=== PATIENT | male | born 1945 | race Caucasian/White ===

== ENCOUNTER 2021-01-18 13:20 | Emergency (ER) | payer MEDICARE, OTHER ==
[~2021-01-18] VITALS: Ht 180 cm; Wt 165.0 kg
--- NOTE | 2021-01-18 13:45 | ED General ---
General Chief Complaint: Exposure Stated Complaint: HEAT EXPOSURE Nursing Triage Note: PT WAS CHANGING A FLAT TIRE ON THE SIDE OF THE ROAD AND BECAME LIGHTHEADED AND DIZZY IN THE HEAT. Source of Information: Patient, EMS History of Present Illness Date Seen by Provider: Jan 18, 2021 Time Seen by Provider: 13:20 Initial Comments 75 yo male presenting by EMS with complaint of being light headed, dizzy and almost passing out in the heat as he was trying to change a flat tire on the side of the road. He did not have air conditioning in his truck either. He does have a history of high blood pressure and building fluid in his lungs. He is traveling from [place] as he was trying to transport a trailer. He had 2 flat tires that he had to try and change. With him being in the heat he was getting overheated and felt like he was going to pass out so he called 911. They had started an IV and were given IV fluids on arrival to the emergency department. He states he was feeling better as many fluids were going on. He denies any vomiting but did have some nausea while he was in the extreme heat. He was given Zofran by EMS. He denies any chest pain, vomiting, diarrhea, abdominal pain, chest pain, headache Allergies and Home Medications Allergies Coded Allergies: No Known Drug Allergies (Unverified , 01/18/21) Patient Home Medication List Home Medication List Reviewed: Yes Review of Systems Review of Systems Constitutional: see HPI; No chills; dizziness; No fever EENTM: no symptoms reported Respiratory: no symptoms reported Cardiovascular: no symptoms reported Gastrointestinal: see HPI Genitourinary: no symptoms reported Musculoskeletal: no symptoms reported Skin: no symptoms reported Psychiatric/Neurological: No Symptoms Reported Past [id number] Hx Patient Social History Tobacco Use?: No Use of E-Cig and/or Vaping dev: No Substance use?: No Alcohol Use?: No Pt feels they are or have been: No Immunizations Up To Date First/Initial COVID19 Vaccinat: JUL 2020 Second COVID19 Vaccination Brian: AUGUST 2020 COVID19 Vaccine [employer]: DOESNT KNOW Past Medical History Chronic Edema/Swelling, Hypertension Physical Exam Vital Signs Vital Signs - First Documented 01/18/21 13:30 Temp 36.4 Pulse 71 Resp 18 B/P (MAP) 122/74 (90) Pulse Ox 94 O2 Delivery Room Air Capillary Refill : Less Than 3 Seconds Height, Weight, BMI Height: '" Weight: lbs. oz. kg; 50.00 BMI Method: General Appearance: No Apparent Distress, WD/WN HEENT: PERRL/EOMI, Pharynx Normal Neck: Full Range of Motion, Normal Inspection, Non Tender, Supple Respiratory: Chest Non Tender, Lungs Clear, Normal Breath Sounds, No Accessory Muscle Use, No Respiratory Distress Cardiovascular: Regular Rate, Rhythm, Normal Peripheral Pulses Gastrointestinal: Normal Bowel Sounds, No Pulsatile Mass, Non Tender, Soft Rectal: Deferred Back: No CVA Tenderness Extremity: Normal Capillary Refill, Normal Inspection, Pedal Edema (Trace to 1+ bilateral) Neurologic/Psychiatric: Alert, Oriented x3 Skin: Normal Color, Warm/Dry Progress/Results/Core Measures Suspected Sepsis SIRS Temperature: Pulse: 71 Respiratory Rate: 18 Laboratory Tests 01/18/21 13:30: White Blood Count 7.4 Blood Pressure 122 /74 Mean: 90 Laboratory Tests 01/18/21 13:30: Creatinine 0.86, Platelet Count 195, Total Bilirubin 0.7 Results/Orders Lab Results Laboratory Tests Test 01/18/21 13:30 Range/Units White Blood Count 7.4 4.3-11.0 10^3/uL Red Blood Count 4.52 4.35-5.85 10^6/uL Hemoglobin 13.3 13.3-17.7 G/DL Hematocrit 40 40-54 % Mean Corpuscular Volume 88 80-99 FL Mean Corpuscular Hemoglobin 29 25-34 PG Mean Corpuscular Hemoglobin Concent 33 32-36 G/DL Red Cell Distribution Width 14.2 10.0-14.5 % Platelet Count 195 130-400 10^3/uL Mean Platelet Volume 10.4 7.4-10.4 FL Immature Granulocyte % (Auto) 0 % Neutrophils (%) (Auto) 75 42-75 % Lymphocytes (%) (Auto) 14 12-44 % Monocytes (%) (Auto) 9 0-12 % Eosinophils (%) (Auto) 2 0-10 % Basophils (%) (Auto) 0 0-10 % Neutrophils # (Auto) 5.6 1.8-7.8 X 10^3 Lymphocytes # (Auto) 1.0 1.0-4.0 X 10^3 Monocytes # (Auto) 0.7 0.0-1.0 X 10^3 Eosinophils # (Auto) 0.2 0.0-0.3 10^3/uL Basophils # (Auto) 0.0 0.0-0.1 10^3/uL Immature Granulocyte # (Auto) 0.0 0.0-0.1 10^3/uL Sodium Level 140 135-145 MMOL/L Potassium Level 3.9 3.6-5.0 MMOL/L Chloride Level 108 H 98-107 MMOL/L Carbon Dioxide Level 23 21-32 MMOL/L Anion Gap 9 5-14 MMOL/L Blood Urea Nitrogen 19 H 7-18 MG/DL Creatinine 0.86 0.60-1.30 MG/DL Estimat Glomerular Filtration Rate 86 BUN/Creatinine Ratio 22 Glucose Level 91 70-105 MG/DL Calcium Level 8.6 8.5-10.1 MG/DL Corrected Calcium 8.8 8.5-10.1 MG/DL Magnesium Level 1.7 1.6-2.4 MG/DL Total Bilirubin 0.7 0.1-1.0 MG/DL Aspartate Amino Transf (AST/SGOT) 24 5-34 U/L Alanine Aminotransferase (ALT/SGPT) 20 0-55 U/L Alkaline Phosphatase 91 40-136 U/L Total Protein 5.8 L 6.4-8.2 GM/DL Albumin 3.7 3.2-4.5 GM/DL My Orders Orders - JUSTINE FELTON MD Comprehensive Metabolic Panel (01/18/21 13:28) Ed Iv/Invasive Line Start (01/18/21 13:28) Cbc With Automated Diff (01/18/21 13:28) Magnesium (01/18/21 13:28) Vital Signs/I&O 01/18/21 01/18/21 13:30 15:36 Temp 36.4 36.4 Pulse 71 71 Resp 18 16 B/P (MAP) 122/74 (90) 123/68 Pulse Ox 94 98 O2 Delivery Room Air Room Air 01/19/21 00:00 Intake Total 700 ml Balance 700 ml Capillary Refill : Less Than 3 Seconds Blood Pressure Mean: 90 Progress Note #1: Progress Note Check basic labs and trying to obtain urine sample from the patient. He has 2 L of normal saline infusing through IVs from EMS. Plan on stopping after the 2 L since he has a history of edema and swelling in his legs and has to take medicine to help get the fluid off. Progress Note #2: Progress Note No acute significant normality on CBC or chemistry. His vital signs remained stable and he continued to feel improved while here in the ED. He was tolerating oral fluids without difficulty. He states he had prostate issues and did not feel like he can provide a urine specimen at this point. We'll discharged home and have him encourage fluids. Counseled on follow-up and return precautions. Departure Impression Primary Impression: Heat exhaustion, unspecified, initial encounter Disposition: HOME, SELF-CARE Condition: Improved Departure-Patient Inst. Decision time for Depature: 15:44 Referrals: [facility] Patient Instructions: Heat Illness ED Add. Discharge Instructions: Stay well hydrated and follow up with clinic for continued concerns Stay out of the excessive heat and try to only do things outside during the cooler times of the day early in the morning or late evening. All discharge instructions reviewed with patient and/or family. Voiced understanding. JUSTINE FELTON MD Jan 18, 2021 13:45
[2021-01-18 14:16] LABS: WHITE BLOOD COUNT 7.4 10^3/uL (4.3-11.0)
[2021-01-18 14:17] LABS: HEMATOCRIT 40 % (40-54); HEMOGLOBIN 13.3 G/DL (13.3-17.7); LYMPHOCYTES % (AUTO) 14 % (12-44); MEAN CORPUSCULAR HEMOGLOBIN 29 PG (25-34); MEAN CORPUSCULAR HGB CONC 33 G/DL (32-36); MEAN CORPUSCULAR VOLUME 88 FL (80-99); MEAN PLATELET VOLUME 10.4 FL (7.4-10.4); MONOCYTES % (AUTO) 9 % (0-12); NEUTROPHILS % (AUTO) 75 % (42-75); PLATELET COUNT 195 10^3/uL (130-400)
[2021-01-18 14:18] LABS: BASOPHILS % (AUTO) 0 % (0-10); EOSINOPHILS # (AUTO) 0.2 10^3/uL (0.0-0.3); EOSINOPHILS % (AUTO) 2 % (0-10); MONOCYTES # (AUTO) 0.7 X 10^3 (0.0-1.0); NEUTROPHILS # (AUTO) 5.6 X 10^3 (1.8-7.8)
[2021-01-18 14:42] LABS: CALCIUM 8.6 MG/DL (8.5-10.1); CREATININE SERUM 0.86 MG/DL (0.60-1.30); POTASSIUM 3.9 MMOL/L (3.6-5.0)
[2021-01-18 14:43] LABS: ALBUMIN 3.7 GM/DL (3.2-4.5); BILIRUBIN,TOTAL 0.7 MG/DL (0.1-1.0); MAGNESIUM 1.7 MG/DL (1.6-2.4); TOTAL PROTEIN 5.8 GM/DL (6.4-8.2)
[2021-01-18 15:36] VITALS: BP 123/68
== END 2021-01-18 15:48 | disposition home or self-care (01) ==
LOC: ER FS 13:26
DX: T67.5XXA Heat exhaustion, unspecified, initial encounter (principal); I10 Essential (primary) hypertension
CPT/HCPCS: 36415; 80053; 83735; 85025